=== PATIENT | male | born 1985 | race Caucasian/White ===

== ENCOUNTER 2021-08-18 08:08 | Emergency (ER) | payer OTHER ==
[~2021-08-18] VITALS: Ht 190.5 cm; Wt 118.2 kg
[~2021-08-18 08:08] MED LIST: IBU800 M1 PO; NORCO 325 MG-7.1 TAB PO
[2021-08-18 08:14] VITALS: TEMP 98.4
[2021-08-18 08:32] LABS: BASO % 0.4 % (0.0-2.0); EOS # 0.1 K/mm3 (0.0-0.7); EOS % 1.5 % (0.0-4.0); GRAN # 2.7 K/mm3 (1.4-6.5); GRAN % 51.2 % (42.2-75.2); HEMATOCRIT 43.2 % (42.0-52.0); LYMPH # 2.1 K/mm3 (1.2-3.4); LYMPH % 38.6 % (20.0-51.0); MEAN CELL VOLUME 86 fl (80.0-100.0); MEAN CORPUSCULAR HEMOGLOBIN 30 pg (27-31); MEAN CORPUSCULAR HGB CONC 35 g/dl (33.0-37.0); MONO # 0.4 K/mm3 (0.1-0.6); MONO % 7.7 % (1.7-9.3); PLATELET COUNT 198 K/mm3 (130-400); RED BLOOD COUNT 5.02 M/mm3 (4.20-5.60); REDCELL DISTRIBUTION WIDTH-CV 12.9 % (11.5-14.5)
[2021-08-18 09:15] LABS: ALANINE AMINOTRANSFERASE 31 U/L (0-55); ALBUMIN 4.6 gm/dL (3.5-5.0); ALKALINE PHOSPHATASE 90 U/L (40-150); ANION GAP 11 mmol/L (7-16); AST,SGOT 20 U/L (5-34); BILIRUBIN,TOTAL 0.4 mg/dL (0.2-1.2); BLOOD UREA NITROGEN 14 mg/dL (9-21); CALCIUM 9.3 mg/dL (8.4-10.2); CARBON DIOXIDE 21 mmol/L (22-29); CHLORIDE 108 mmol/L (98-107); CREATININE, serum 1.01 mg/dL (0.72-1.25); GLUCOSE 99 mg/dL (70-99); LIPASE 26 U/L (8-78); POTASSIUM 3.9 mmol/L (3.5-4.5); SODIUM 140 mmol/L (136-145); TOTAL PROTEIN 7.3 gm/dL (6.2-8.1)
[2021-08-18 09:21] LABS: TROPONIN-I < 0.010 ng/mL (0.00-0.033)
[2021-08-18 12:36] VITALS: BP 126/90; PULSE 66
== END 2021-08-18 12:38 | disposition home or self-care (01) ==
LOC: COL.ER 08:08
PROVIDERS: Emergency Medicine
DX: R10.13 Epigastric pain (principal); R07.2 Precordial pain; Z28.310 Unvaccinated for COVID-19
CPT/HCPCS: C9113; J1885

== ENCOUNTER 2021-10-26 12:07 | Emergency (ER) | payer OTHER ==
[~2021-10-26] VITALS: Ht 190.5 cm; Wt 111.8 kg
[2021-10-26 12:31] VITALS: TEMP 98.2
[2021-10-26 13:05] LABS: BASO % 0.2 % (0.0-2.0); EOS # 0.1 K/mm3 (0.0-0.7); GRAN # 2.7 K/mm3 (1.4-6.5); GRAN % 53.1 % (42.2-75.2); HEMATOCRIT 40.5 % (42.0-52.0); HEMOGLOBIN 13.6 g/dl (13.5-18.0); LYMPH # 1.8 K/mm3 (1.2-3.4); LYMPH % 36.1 % (20.0-51.0); MEAN CELL VOLUME 86 fl (80.0-100.0); MEAN CORPUSCULAR HEMOGLOBIN 29 pg (27-31); MEAN CORPUSCULAR HGB CONC 34 g/dl (33.0-37.0); MEAN PLATELET VOLUME 9.9 fl (7.4-10.4); MONO # 0.4 K/mm3 (0.1-0.6); MONO % 8.4 % (1.7-9.3); PLATELET COUNT 186 K/mm3 (130-400); RED BLOOD COUNT 4.71 M/mm3 (4.20-5.60); REDCELL DISTRIBUTION WIDTH-CV 12.9 % (11.5-14.5)
[2021-10-26 13:25] LABS: ANION GAP 11 mmol/L (7-16); BLOOD UREA NITROGEN 15 mg/dL (9-21); CALCIUM 9.3 mg/dL (8.4-10.2); CARBON DIOXIDE 22 mmol/L (22-29); CHLORIDE 106 mmol/L (98-107); CREATININE, serum 0.95 mg/dL (0.72-1.25); GLUCOSE 87 mg/dL (70-99); POTASSIUM 3.9 mmol/L (3.5-4.5); SODIUM 139 mmol/L (136-145)
[2021-10-26 13:44] LABS: TROPONIN-I < 0.010 ng/mL (0.00-0.033)
[2021-10-26 16:16] VITALS: BP 132/84; PULSE 56
== END 2021-10-26 16:20 | disposition home or self-care (01) ==
LOC: COL.ER 12:07
PROVIDERS: Emergency Medicine
DX: R07.89 Other chest pain (principal); Z82.49 Family history of ischemic heart disease and other diseases of the circulatory system; Z28.310 Unvaccinated for COVID-19
CPT/HCPCS: J1885

== ENCOUNTER 2024-01-19 20:20 | Emergency (ER) | payer OTHER ==
[~2024-01-19] VITALS: Ht 190.5 cm; Wt 100.0 kg
[2024-01-19 21:40] VITALS: BP 145/86; PULSE 78; TEMP 98.3
== END 2024-01-19 21:40 | disposition home or self-care (01) ==
LOC: COL.ER 20:20
DX: T16.2XXA Foreign body in left ear, initial encounter (principal); W44.F4XA Insect entering into or through a natural orifice, initial encounter; Y93.E9 Activity, other interior property and clothing maintenance; Y92.002 Bathroom of unspecified non-institutional (private) residence as the place of occurrence of the external cause